=== PATIENT | male | born 1945 | race Caucasian/White ===

== ENCOUNTER 2021-01-27 12:30 | Observation (INO) ==
[2021-01-27] MEDS ORDERED: IOPAMIDOL 100 ML BOTTLE IV ONE (12:31)
[2021-01-27] MEDS ORDERED: ONDANSETRON 4 MG/2 ML VIAL IV ONE (12:41)
[2021-01-27] MEDS ORDERED: 0.9 % SODIUM CHLORIDE 1,000 ML IV SCH ×2 (12:45→13:30)
[2021-01-27 12:53] LABS: POC Creatinine 0.9 mg/dL (0.6-1.2)
--- NOTE | 2021-01-27 12:59 | Cat Scan Report ---
CLINICAL INFORMATION: Code stroke COMPARISON: None. TECHNIQUE: 2.5 mm helical slices were obtained in the skull base to vertex. Following reconstruction, axial reformatted images were reviewed at bone and parenchymal windows. The exam was performed using radiation dose optimization techniques including, but not limited to, automated exposure control, adjustment of the mA and/or kV according to patient size and use of iterative reconstruction technique. FINDINGS: The ventricles, sulci, fissures, and cisterns are symmetrically enlarged compatible with mild age-related atrophy. No extra-axial fluid collections are identified. Mild patchy chronic ischemic changes, in the deep cerebral white matter, are expected for age. There is no hemorrhage, mass effect, or edema. Bone windows show no osseous abnormality. IMPRESSION: Mild atrophy and chronic ischemic changes in the deep cerebral white matter-expected for age. No acute findings Interpreted and Authenticated by: Juanjose Ayala 01/27/21
[2021-01-27 13:15] LABS: POC INR 1.4 (0.8-1.2); POC Pro Time 16.3 sec (11.9-14.5)
[2021-01-27] MEDS ORDERED: 0.9 % SODIUM CHLORIDE 1,000 ML IV ONE (13:19)
--- NOTE | 2021-01-27 13:25 | Cat Scan Report ---
CLINICAL INFORMATION: Stroke COMPARISON: None. TECHNIQUE: 80 cc of Isovue-370 were injected intravenously , and using SmartPrep to maximize cerebral arterial opacification, 0.625 mm helical slices were obtained from the skull base through the cerebral vertex. Following reconstruction , sagittal, coronal and axial reformatted images were processed and reviewed at multiple windows and levels. 3D volume rendered and MIP images were acquired at a independent workstation. The exam was performed using radiation dose optimization techniques including, but not limited to, automated exposure control, adjustment of the mA and/or kV according to patient size and use of iterative reconstruction technique. FINDINGS: The intracranial internal carotid, vertebral, basilar, anterior, middle and posterior cerebral arteries and their branches are well-opacified and normal in contour and caliber without significant stenosis, occlusion or other pathology. Superficial/deep cerebral veins and deep venous sinuses are widely patent IMPRESSION: Normal exam Interpreted and Authenticated by: Juanjose Ayala 01/27/21
--- NOTE | 2021-01-27 13:27 | Emergency Department Note ---
Neuro HPI General Chief Complaint: Stroke Symptoms Stated Complaint: Stroke Sx Time Seen by Provider: 01/27/21 12:41 Source: patient, family (), RN notes reviewed and old records reviewed Mode of arrival: ambulatory Limitations: no limitations History of Present Illness HPI Narrative: Narrative: 75-year-old male with left facial starting the night prior to arrival at 0 730 had a history of German's palsy and they are thinking that was probably the case however he started having headaches vision changes blurred vision and some numbness on his left arm. Came in for evaluation of CVA. Has history of atrial fib and is on. Onset (ago): hour(s) Last Observed Normal: 19:30 Timing confirmed by: spouse Location: left face History of same: Yes Severity: moderate Quality: weak, numb and tingling Improves with: none Worsens with: time Context: gradual onset On Anticoagulants: Yes Associated symptoms: Reports headaches, nausea/vomiting, weakness and other (eye pain and vision changes); Denies confusion, chest pain, cough, diaphoresis, fever/chills, loss of appetite, malaise, vertigo, seizures, shortness of breath and syncope Treatments Prior to Arrival: none Related Data Home Medications Medication Instructions Recorded Confirmed insulin glargine 100 unit/mL (3 18 unit SUB-Q Q12H ml 09/22/20 12/22/20 mL) subcutaneous pen terbinafine HCl 250 mg tablet 250 mg PO QDAY tab 11/06/20 12/22/20 Previous Rx's Medication Instructions Recorded blood-glucose meter #1 each 12/24/16 lancets #100 each 12/24/16 potassium chloride 10 mEq 10 meq PO BID #180 tab 04/20/19 tablet,extended release(part/cryst) ketoconazole 2 % topical cream 1 applic TOPICAL BID #60 g 08/06/19 furosemide 40 mg tablet 40 mg PO QDAY 90 Days #90 tab 08/18/20 blood sugar diagnostic #100 each 10/13/20 sildenafil 50 mg tablet 50 mg PO ONCE #30 tab 10/16/20 diltiazem HCl 240 mg 240 mg PO QDAY 90 Days #90 cap 11/04/20 capsule,extended release 24 hr losartan 50 mg tablet 50 mg PO BID 90 Days #180 tab 11/04/20 metoprolol succinate 50 mg 50 mg PO BID 90 Days #180 tab 11/04/20 tablet,extended release 24 hr warfarin 5 mg tablet See Rx Instructions .ROUTE 11/17/20 .COMPLEX #90 tab insulin aspart 5 unit SUB-Q QDAY #15 ml 11/19/20 (niacinamide)(U-100) 100 unit/mL(3 mL) subcutaneous pen metformin 500 mg tablet 1,000 mg PO BID 90 Days #360 tab 11/26/20 atorvastatin 10 mg tablet 10 mg PO QDAY 90 Days #90 tab 12/18/20 magnesium oxide 400 mg (241.3 mg 400 mg PO BID 90 Days #180 tab 01/05/21 magnesium) tablet glucagon 3 mg/actuation nasal spray 3 mg INTRANASAL ONCE #2 ea 01/07/21 digoxin 125 mcg (0.125 mg) tablet 125 mcg PO QDAY 90 Days #90 tab 01/08/21 Allergies Allergy/AdvReac Type Severity Reaction Status Date / Time tramadol AdvReac Intermediate wound him Verified 01/27/21 12:43 up, insomnia Review of Systems ROS ROS Narrative: Narrative: All systems ED: reviewed and negative except as stated. 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) Chronic neck pain (Chronic) Erectile dysfunction (Chronic) Atrial fibrillation (Chronic 06/14/15) Sleep apnea (Chronic) Obesity (Chronic) Hx of colonoscopy (Chronic 12/07/10) Hx MRSA infection (Chronic) Osteoarthrosis (Chronic) Hypertension, essential (Chronic) Hyperlipidemia (Chronic) Ventral hernia (Chronic) Heartburn (Chronic) Diabetes mellitus, type II (Chronic) Dermatophytosis of groin (Chronic) DDD (degenerative disc disease) (Chronic) Anemia (Chronic) Medical History Acute diastolic (congestive) heart failure (06/14/15) Anemia Asthma Atrial fibrillation (06/14/15) Cardiomyopathy CHF (congestive heart failure) CHF (congestive heart failure) Chronic neck pain DDD (degenerative disc disease) Dermatophytosis of groin Diabetes mellitus, type II Dyspnea on exertion Erectile dysfunction Heartburn Hx MRSA infection Hyperlipidemia Hypertension, essential Medicare annual wellness visit, initial Obesity Osteoarthrosis Uncontrolled diabetes mellitus Ventral hernia Surgical History H/O shoulder surgery LEFT, 01/2020 Hx of cataract surgery 2019 Hx of colonoscopy (12/07/10) 12/17 Family History sister Malignant neoplasm of cervix mother Essential hypertension Disorder of joint Disease of lung father Disease of lung Schizophrenia Social History Smoking Status: Former smoker Alcohol Intake Frequency: holiday/special occasion only Substance Use: does not use Exam Narrative Narrative: Narrative: General Limitations: no limitations General appearance: Present alert and in no apparent distress Head Head: Present atraumatic and normocephalic Eye Eye: Present normal appearance, PERRL and EOMI ENT ENT: Present normal exam and mucous membranes moist Neck Neck: Present normal inspection and full ROM Chest Chest: Present normal inspection; Absent tenderness Respiratory Respiratory: Present normal lung sounds bilaterally; Absent respiratory distress Cardiovascular Cardiovascular: Present regular rate, irregular rhythm and systolic murmur Adbominal Abdominal: Present soft; Absent distention, tenderness, guarding and rebound Extremities Extremities: Present normal inspection, full ROM and normal capillary refill; Absent tenderness, pedal edema and pretibial edema Back Back: Present normal inspection; Absent CVA tenderness (R) and CVA tenderness (L) Neurological Neurological: Present alert and oriented X3 Expanded Neurological Patient oriented to: Present person, place and time Speech: Present fluid speech CRANIAL NERVES: EOM function (II, III, IV, ): Normal, facial sensation (V): Abnormal Left, facial palsy (VII): Abnormal Left and tongue deviation (XII): Normal CEREBELLAR FUNCTION: Romberg normal Motor strength - LUE: 5/5 Motor strength - RUE: 5/5 Motor strength - LLE: 5/5 Motor strength - RLE: 5/5 UPPER MOTOR NEURON EXAM: evan neglect: Normal, pronator drift: Normal and Babinski sign: Normal SENSORY EXAM UPPER EXTREMITY: Abnormal Left: light touch SENSORY EXAM LOWER EXTREMITY: Normal: light touch DTR: 2+: biceps (L), biceps (R), patellar (L) and patellar (R) Coma Scale Eye Opening: Spontaneous Coma Scale Motor Response: Obeys Commands Coma Scale Verbal Response: Oriented Coma Scale Total: 15 Psychiatric Psychiatric: Present normal affect and normal mood Skin Skin: Present warm (WNL); Absent rash Course Vital Signs Vital signs: Vital Signs Temperature 97.0 F 01/27/21 12:33 Pulse Rate 85 01/27/21 12:33 Respiratory Rate 16 01/27/21 12:33 Blood Pressure 162/100 01/27/21 12:33 Pulse Oximetry (%) 97 01/27/21 12:33 Temperature 97.0 F 01/27/21 12:50 Pulse Rate 50 L 01/27/21 16:02 Respiratory Rate 17 01/27/21 16:02 Blood Pressure 158/82 01/27/21 16:02 Pulse Oximetry (%) 97 01/27/21 16:02 MDM MDM Narrative Medical decision making narrative: Narrative: 75-year-old male with acute left facial droop and additional symptoms including eye pain blurred vision and numbness to the arm. Came in after 12 hours so TPA will was not considered he is also on Coumadin with an INR 1.4. CTA of the head and neck did not reveal a large vessel occlusion. Teleneurology was used in the recommendations for a hemoglobin A1c and lipid panel and MRIs to be done the patient to be observed he is already anticoagulated for his A. fib there is no low-dose lovastatin discussed patient with hospitalist who graciously agreed to admission further care instruction per hospitalist Differential Diagnosis Differential Diagnosis: CVA TIA German's palsy hypoglycemia Medical Records Medical records reviewed: Yes I reviewed the patient's medical records. Medical records narrative: History of A. fib and is on Coumadin Lab Data Lab results reviewed: Yes I reviewed the patient's lab results. Result diagrams: 01/27/21 12:48 01/27/21 12:47 Labs: Lab Results 01/27/21 01/27/21 01/27/21 Range/Units 12:41 12:47 12:47 WBC (4.5-11.0) K/mcL RBC (4.63-6.08) M/mcL Hgb (13.7-17.5) g/dL Hct (40.1-51.0) % MCV (80.0-100.0) fL MCH (26.0-34.0) pg MCHC (31.0-36.0) g/dL RDW (11.5-14.5) % Plt Count (140-440) K/mcL MPV (7.4-10.4) fL Neut % (Auto) (38.0-78.0) % Lymph % (Auto) (15.5-49.0) % [place] % (Auto) (1.0-12.0) % Eos % (Auto) (0.0-7.0) % Baso % (Auto) (0.0-2.0) % Lymph # (Auto) (1.50-4.80) K/mcL [place] # (Auto) (0.10-0.90) K/mcL Eos # (Auto) (0.00-0.70) K/mcL Baso # (Auto) (0.00-0.30) K/mcL Absolute Neutrophils (1.80-8.00) K/mcL POC PT 16.3 H (11.9-14.5) sec PT 17.8 H (11.9-14.5) sec POC INR 1.4 H (0.8-1.2) INR 1.4 H (0.9-1.1) APTT 37.3 H (20.0-37.0) sec Sodium 136 (133-145) mmol/L Potassium 4.0 (3.3-5.1) mmol/L Chloride 101 (96-108) mmol/L Carbon Dioxide 21 L (22-30) mmol/L Anion Gap 14.0 (8.0-16.0) BUN 14 (8-23) mg/dL Creatinine 0.9 (0.7-1.2) mg/dL POC Creatinine 0.9 (0.6-1.2) mg/dL GFR Calculation 82 Glucose 314 H (70-105) mg/dL Calcium 9.1 (8.6-10.4) mg/dL Total Bilirubin 0.9 (0.1-1.0) mg/dL AST 17 (<40) U/L ALT 15 (<40) U/L Alkaline Phosphatase 87 (39-117) U/L Troponin T < 0.01 (<0.03) ng/mL Total Protein 7.1 (5.9-8.4) gm/dL Albumin 4.0 (3.2-5.2) gm/dL Globulin 3.1 (2.2-3.7) gm/dL Albumin/Globulin Ratio 1.3 (1.0-2.3) Urine Color Urine Appearance (Clear) Urine pH (5.0-9.0) Ur Specific [place] (1.000-1.035) Urine Protein (Negative) mg/dL Urine Glucose (UA) (Negative) mg/dL Urine Ketones (Negative) mg/dL Urine Occult Blood (Negative) mg/dL Urine Nitrate (Negative) Urine Bilirubin (Negative) mg/dL Urine Urobilinogen mg/dL Ur Leukocyte Esterase (Negative) /ug Urine RBC (0-3) /hpf Urine WBC (0-4) /hpf Ur Squamous Epith Cells (0-4) /hpf Urine Bacteria (0) /hpf Ur Culture Indicated? Digoxin ng/mL 01/27/21 01/27/21 01/27/21 Range/Units 12:47 12:48 15:20 WBC 9.8 (4.5-11.0) K/mcL RBC 4.61 L (4.63-6.08) M/mcL Hgb 14.9 (13.7-17.5) g/dL Hct 43.2 (40.1-51.0) % MCV 93.7 (80.0-100.0) fL MCH 32.3 (26.0-34.0) pg MCHC 34.5 (31.0-36.0) g/dL RDW 13.5 (11.5-14.5) % Plt Count 241 (140-440) K/mcL MPV 10.6 H (7.4-10.4) fL Neut % (Auto) 63.9 (38.0-78.0) % Lymph % (Auto) 27.1 (15.5-49.0) % [place] % (Auto) 8.0 (1.0-12.0) % Eos % (Auto) 0.6 (0.0-7.0) % Baso % (Auto) 0.4 (0.0-2.0) % Lymph # (Auto) 2.66 (1.50-4.80) K/mcL [place] # (Auto) 0.78 (0.10-0.90) K/mcL Eos # (Auto) 0.06 (0.00-0.70) K/mcL Baso # (Auto) 0.04 (0.00-0.30) K/mcL Absolute Neutrophils 6.27 (1.80-8.00) K/mcL POC PT (11.9-14.5) sec PT (11.9-14.5) sec POC INR (0.8-1.2) INR (0.9-1.1) APTT (20.0-37.0) sec Sodium (133-145) mmol/L Potassium (3.3-5.1) mmol/L Chloride (96-108) mmol/L Carbon Dioxide (22-30) mmol/L Anion Gap (8.0-16.0) BUN (8-23) mg/dL Creatinine (0.7-1.2) mg/dL POC Creatinine (0.6-1.2) mg/dL GFR Calculation Glucose (70-105) mg/dL Calcium (8.6-10.4) mg/dL Total Bilirubin (0.1-1.0) mg/dL AST (<40) U/L ALT (<40) U/L Alkaline Phosphatase (39-117) U/L Troponin T (<0.03) ng/mL Total Protein (5.9-8.4) gm/dL Albumin (3.2-5.2) gm/dL Globulin (2.2-3.7) gm/dL Albumin/Globulin Ratio (1.0-2.3) Urine Color Yellow Urine Appearance Clear (Clear) Urine pH 6.0 (5.0-9.0) Ur Specific [place] 1.047 (1.000-1.035) Urine Protein Negative (Negative) mg/dL Urine Glucose (UA) >=500 A (Negative) mg/dL Urine Ketones Negative (Negative) mg/dL Urine Occult Blood Negative (Negative) mg/dL Urine Nitrate Negative (Negative) Urine Bilirubin Negative (Negative) mg/dL Urine Urobilinogen Negative mg/dL Ur Leukocyte Esterase Negative (Negative) /ug Urine RBC 0 (0-3) /hpf Urine WBC 0 (0-4) /hpf Ur Squamous Epith Cells 0 (0-4) /hpf Urine Bacteria None (0) /hpf Ur Culture Indicated? No Digoxin 0.4 ng/mL ED POC Tests ED POC Tests: JACQUELINE - SARS Antigen Negative Radiology Data Radiology results reviewed: Yes I reviewed the patient's radiology results. Radiology results narrative: Head CT IMPRESSION: Mild atrophy and chronic ischemic changes in the deep cerebral white matter-expected for age. No acute findings Head CTA IMPRESSION: Normal exam Neck CTA IMPRESSION: Moderate right and mild left fibrofatty calcific plaque in the carotid bifurcations, but no evidence of stenosis or occlusion. EKG Data EKG #1: EKG attestation: Yes I reviewed and interpreted this EKG. and Yes There are no EKG findings of acute coronary syndrome Rate: normal (66) Rhythm: A.Fib Q waves: III Interpretation: nonspecific ST-T wave changes Pulse Oximetry Data Pulse Ox %: 95 Interpretation: 95% on room air is within normal limits for this patient. Discharge Plan Patient/Caregiver Discharge Instructions Pt seen by MAGICIAN HELPER/PA only: No Clinical Impression: Acute CVA (cerebrovascular accident) A-fib Qualifiers: Atrial fibrillation type: longstanding persistent Qualified Code(s): I48.11 - Longstanding persistent atrial fibrillation Diabetes Qualifiers: Diabetes mellitus type: type 2 Diabetes mellitus ferry terminal agent insulin use: with custodial use Patient Disposition: Xfer As Inpt ([facility]) Follow up with: Uriah Pedraza PA-C [Primary Care Provider] - Prescriptions: No Action (DME) lancets [Comfort Lancets] misc See Dose Instructions .ROUTE .MEDSUPPLY Qty: 100 RF: 0 (DME) blood-glucose meter kit See Dose Instructions .ROUTE .MEDSUPPLY Qty: 1 RF: 0 ketoconazole 2 % cream 1 applic TOPICAL BID Qty: 60 RF: 0 furosemide 40 mg tablet 40 mg PO QDAY 90 Days Qty: 90 RF: 1 (DME) True Metrix Glucose Test Strip Strip See Dose Instructions .ROUTE .MEDSUPPLY Qty: 100 RF: 2 sildenafil [Viagra] 50 mg tablet 50 mg PO ONCE Qty: 30 RF: 0 losartan 50 mg tablet 50 mg PO BID 90 Days Qty: 180 RF: 1 metoprolol succinate 50 mg tablet extended release 24 hr 50 mg PO BID 90 Days Qty: 180 RF: 1 diltiazem HCl 240 mg capsule,extended release 24hr 240 mg PO QDAY 90 Days Qty: 90 RF: 1 warfarin 5 mg tablet See Rx Instructions mg .ROUTE .COMPLEX Qty: 90 RF: 0 insulin aspart (niacinamide) 100 unit/mL (3 mL) insulin pen 5 unit SUB-Q QDAY Qty: 15 RF: 0 metformin 500 mg tablet 1,000 mg PO BID 90 Days Qty: 360 RF: 1 atorvastatin 10 mg tablet 10 mg tablet 10 mg PO QDAY 90 Days Qty: 90 RF: 1 magnesium oxide 400 mg (241.3 mg magnesium) tablet 400 mg PO BID 90 Days Qty: 180 RF: 1 digoxin 125 mcg (0.125 mg) tablet 125 mcg PO QDAY 90 Days Qty: 90 RF: 1 potassium chloride [Klor-Con M10] 10 mEq tablet,ER particles/crystals 10 meq PO BID Qty: 180 RF: 1 terbinafine HCl 250 mg tablet 250 mg PO QDAY RF: 0 Basaglar KwikPen U-100 Insulin 100 unit/mL (3 mL) insulin pen 18 unit SUB-Q Q12H RF: 0 Baqsimi 3 mg/actuation spray,non-aerosol 3 mg intranasal ONCE Qty: 2 RF: 0
--- NOTE | 2021-01-27 13:30 | Cat Scan Report ---
CLINICAL INFORMATION: Code stroke COMPARISON: None. TECHNIQUE: 80 cc of Isovue-300 were injected intravenously followed by 40 cc of normal saline flush. Using SmartPrep, 0.625 helical slices were obtained from the thoracic aortic arch through the nikolski of [place]. Following reconstruction, 2.5 mm sagittal, coronal and axial reformatted images were processed. MIPS , 3-D volume rendering and CPR images were also constructed. The exam was performed using radiation dose optimization techniques including, but not limited to, automated exposure control, adjustment of the mA and/or kV according to patient size and use of iterative reconstruction technique. FINDINGS: The thoracic aortic arch is normal diameter with minimal intimal thickening and conventional aortic branching. Fibrofatty and calcific plaque atherosclerotic is seen in both carotid bifurcations and internal carotid artery origins-more significant on the right. There is however no evidence of stenoses. The brachiocephalic, both subclavian, both common and external carotid and both vertebral arteries are widely patent without significant abnormality. No soft tissue abnormality. IMPRESSION: Moderate right and mild left fibrofatty calcific plaque in the carotid bifurcations, but no evidence of stenosis or occlusion. Interpreted and Authenticated by: Juanjose Ayala 01/27/21
[2021-01-27 13:34] LABS: Basophils # (Auto) 0.04 K/mcL (0.00-0.30); Basophils % (Auto) 0.4 % (0.0-2.0); Eosinophils # (Auto) 0.06 K/mcL (0.00-0.70); Eosinophils % (Auto) 0.6 % (0.0-7.0); Hematocrit 43.2 % (40.1-51.0); Hemoglobin 14.9 g/dL (13.7-17.5); Lymphocytes # (Auto) 2.66 K/mcL (1.50-4.80); Lymphocytes % (Auto) 27.1 % (15.5-49.0); Mean Cell Volume 93.7 fL (80.0-100.0); Mean Corpuscular HGB Conc 34.5 g/dL (31.0-36.0); Mean Platelet Volume 10.6 fL (7.4-10.4); Monocytes # (Auto) 0.78 K/mcL (0.10-0.90); Neutrophils % (Auto) 63.9 % (38.0-78.0); Platelet Count 241 K/mcL (140-440); RBC 4.61 M/mcL (4.63-6.08); Red Cell Distribution Width 13.5 % (11.5-14.5); WBC 9.8 K/mcL (4.5-11.0)
[2021-01-27 14:06] LABS: Partial Thromboplastin Time 37.3 sec (20.0-37.0)
[2021-01-27 14:09] LABS: Digoxin 0.4 ng/mL
[2021-01-27 14:16] LABS: INR 1.4 (0.9-1.1); Prothrombin Time 17.8 sec (11.9-14.5)
[2021-01-27 15:01] LABS: ALT/SGPT 15 U/L (<40); AST/SGOT 17 U/L (<40); Albumin/Globulin Ratio 1.3 (1.0-2.3); Alkaline Phosphatase 87 U/L (39-117); Bilirubin,Total 0.9 mg/dL (0.1-1.0); Blood Urea Nitrogen 14 mg/dL (8-23); Calcium 9.1 mg/dL (8.6-10.4); Carbon Dioxide 21 mmol/L (22-30); Chloride 101 mmol/L (96-108); Globulin 3.1 gm/dL (2.2-3.7); Glomerular Filtration Rate 82; Glucose 314 mg/dL (70-105)
--- NOTE | 2021-01-27 16:03 | Internal Med History&Physical ---
HPI History of Present Illness Patient information: Note initiated : 01/27/21 at 3:57 pm Service Date, if different from initiated Date: [] Patient: Marbin Cummings a 75 y/o M admitted on for Stroke Sx. Chief Complaint: [] History of present illness: Mr. Cummings is a 75 year old M Patient presented to the ED with left facial numbness and weakness. Symptoms started yesterday at 1930 and prior to that he was in his normal state of health. 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 Symptoms have continued through the night. States he developed left facial numbness when he was in the living room with his last night and then shortly thereafter started having droopiness. Had some blurry vision as well. Denies any swallowing difficulty. Denies any numbness tingling or weakness in his arms or legs. Patient states that he feels his symptoms have improved overall but still has noticeable left facial droop. Patient says last night he was not able to raise his eyebrow or close his eye but is able to do both of those today. CTA head neck was unremarkable for acute pathology or severe stenosis. Case discussed with stroke neurologist. Patient does have a history of A. fib and was subtherapeutic on INR. Review of Systems: Pertinent positives as above/headache. Denies fever/chills/nausea/vomiting/chest or abdominal pain/cough/dyspnea/diarrhea. Otherwise see above. 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) Chronic neck pain (Chronic) Erectile dysfunction (Chronic) Atrial fibrillation (Chronic 06/14/15) Sleep apnea (Chronic) Obesity (Chronic) Hx of colonoscopy (Chronic 12/07/10) Hx MRSA infection (Chronic) Osteoarthrosis (Chronic) Hypertension, essential (Chronic) Hyperlipidemia (Chronic) Ventral hernia (Chronic) Heartburn (Chronic) Diabetes mellitus, type II (Chronic) Dermatophytosis of groin (Chronic) DDD (degenerative disc disease) (Chronic) Anemia (Chronic) Medical History Acute diastolic (congestive) heart failure (06/14/15) Anemia Asthma Atrial fibrillation (06/14/15) Cardiomyopathy CHF (congestive heart failure) CHF (congestive heart failure) Chronic neck pain DDD (degenerative disc disease) Dermatophytosis of groin Diabetes mellitus, type II Dyspnea on exertion Erectile dysfunction Heartburn Hx MRSA infection Hyperlipidemia Hypertension, essential Medicare annual wellness visit, initial Obesity Osteoarthrosis Uncontrolled diabetes mellitus Ventral hernia Surgical History H/O shoulder surgery LEFT, 01/2020 Hx of cataract surgery 2019 Hx of colonoscopy (12/07/10) 12/17 Family History sister Malignant neoplasm of cervix mother Essential hypertension Disorder of joint Disease of lung father Disease of lung Schizophrenia Social History household members: spouse housing: house lives independently: Yes marital status: education level: college service: Yes ([id number]) branch: [employer] occupational status: 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, 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 leisure activities: music and other other: 3 children; 16 grandchildren eating out: rarely or never physical activity: none smoking status: Never smoker alcohol intake frequency: holiday/special occasion only substance use type: does not use evert/anabaptist: Quaker seatbelt use: always MEDS/ALLERGIES Home Medications and Allergies Home Medications Medication Instructions Recorded Confirmed Type blood-glucose meter #1 each 12/24/16 01/27/21 Rx lancets #100 each 12/24/16 01/27/21 Rx potassium chloride 10 mEq 10 meq PO BID #180 tab 04/20/19 01/27/21 Rx tablet,extended release(part/cryst) ketoconazole 2 % topical cream 1 applic TOPICAL BID #60 g 08/06/19 01/27/21 Rx furosemide 40 mg tablet 40 mg PO QDAY 90 Days #90 tab 08/18/20 01/27/21 Rx insulin glargine 100 unit/mL (3 18 unit SUB-Q Q12H ml 09/22/20 01/27/21 History mL) subcutaneous pen blood sugar diagnostic #100 each 10/13/20 01/27/21 Rx sildenafil 50 mg tablet 50 mg PO ONCE #30 tab 10/16/20 01/27/21 Rx diltiazem HCl 240 mg 240 mg PO QDAY 90 Days #90 cap 11/04/20 01/27/21 Rx capsule,extended release 24 hr losartan 50 mg tablet 50 mg PO BID 90 Days #180 tab 11/04/20 01/27/21 Rx metoprolol succinate 50 mg 50 mg PO BID 90 Days #180 tab 11/04/20 01/27/21 Rx tablet,extended release 24 hr terbinafine HCl 250 mg tablet 250 mg PO QDAY tab 11/06/20 01/27/21 History warfarin 5 mg tablet See Rx Instructions .ROUTE 11/17/20 01/27/21 Rx .COMPLEX #90 tab insulin aspart 5 unit SUB-Q QDAY #15 ml 11/19/20 01/27/21 Rx (niacinamide)(U-100) 100 unit/mL(3 mL) subcutaneous pen metformin 500 mg tablet 1,000 mg PO BID 90 Days #360 tab 11/26/20 01/27/21 Rx atorvastatin 10 mg tablet 10 mg PO QDAY 90 Days #90 tab 12/18/20 01/27/21 Rx magnesium oxide 400 mg (241.3 mg 400 mg PO BID 90 Days #180 tab 01/05/21 01/27/21 Rx magnesium) tablet glucagon 3 mg/actuation nasal spray 3 mg INTRANASAL ONCE #2 ea 01/07/21 01/27/21 Rx digoxin 125 mcg (0.125 mg) tablet 125 mcg PO QDAY 90 Days #90 tab 01/08/21 01/27/21 Rx Allergies Allergy/AdvReac Type Severity Reaction Status Date / Time tramadol AdvReac Intermediate wound him Verified 01/27/21 12:43 up, insomnia EXAM Constitutional Vitals: Temp Pulse Resp BP Pulse Ox 97.0 F 69 17 128/65 97 01/27/21 12:50 01/27/21 15:32 01/27/21 15:32 01/27/21 15:32 01/27/21 15:32 Exam: General: Alert, Awake, No acute Distress Eyes/N/T: EOMI, Head/Neck: neck supple, normocephalic atraumatic CV: irreg irreg, No murmurs, normal s1/s2 Pulm: Clear b/l, no wheezing/rhonchi/rales Abd: soft, nontender, +BS x4 Ext: no clubbing/cyanosis/edema Neuro: Alert, moves all extremities, symmetrical strength b/l upper/lower, sensations intact b/l upper/lower. Left facial droop, left facial numbness seems to be improving. Patient is able to raise his eyebrow and wrinkle his forehead, although he said he was not able to raise eyebrow last night or close his eye but can now. Skin: warm/dry DATA Data Completed and Pending Labs: Labs from last 24 hours 01/27/21 01/27/21 01/27/21 15:20 12:48 12:47 WBC 9.8 RBC 4.61 L Hgb 14.9 Hct 43.2 MCV 93.7 MCH 32.3 MCHC 34.5 RDW 13.5 Plt Count 241 MPV 10.6 H Neut % (Auto) 63.9 Lymph % (Auto) 27.1 [place] % (Auto) 8.0 Eos % (Auto) 0.6 Baso % (Auto) 0.4 Lymph # (Auto) 2.66 [place] # (Auto) 0.78 Eos # (Auto) 0.06 Baso # (Auto) 0.04 Absolute Neutrophils 6.27 POC PT PT POC INR INR APTT Sodium Potassium Chloride Carbon Dioxide Anion Gap BUN Creatinine POC Creatinine GFR Calculation Glucose Calcium Total Bilirubin AST ALT Alkaline Phosphatase Troponin T Total Protein Albumin Globulin Albumin/Globulin Ratio Urine Color Pending Urine Appearance Pending Urine pH Pending Ur Specific [place] Pending Urine Protein Pending Urine Glucose (UA) Pending Urine Ketones Pending Urine Occult Blood Pending Urine Nitrate Pending Urine Bilirubin Pending Urine Urobilinogen Pending Ur Leukocyte Esterase Pending Digoxin 0.4 01/27/21 01/27/21 01/27/21 12:47 12:47 12:41 WBC RBC Hgb Hct MCV MCH MCHC RDW Plt Count MPV Neut % (Auto) Lymph % (Auto) [place] % (Auto) Eos % (Auto) Baso % (Auto) Lymph # (Auto) [place] # (Auto) Eos # (Auto) Baso # (Auto) Absolute Neutrophils POC PT 16.3 H PT 17.8 H POC INR 1.4 H INR 1.4 H APTT 37.3 H Sodium 136 Potassium 4.0 Chloride 101 Carbon Dioxide 21 L Anion Gap 14.0 BUN 14 Creatinine 0.9 POC Creatinine 0.9 GFR Calculation 82 Glucose 314 H Calcium 9.1 Total Bilirubin 0.9 AST 17 ALT 15 Alkaline Phosphatase 87 Troponin T < 0.01 Total Protein 7.1 Albumin 4.0 Globulin 3.1 Albumin/Globulin Ratio 1.3 Urine Color Urine Appearance Urine pH Ur Specific [place] Urine Protein Urine Glucose (UA) Urine Ketones Urine Occult Blood Urine Nitrate Urine Bilirubin Urine Urobilinogen Ur Leukocyte Esterase Digoxin A/P Narrative A/P Narrative: A: *Stroke-like symptoms (left facial numbness/drooping): -ABCD=5 -h/o Left [place] Palsy but pt able to raise eyebrow/wrinkle forehead/close eye, although states was unable to perform those tasks lastnight. -CTA head/neck no remarkable stenosis *Afib: On warfarin/Dig/Dilt -INR subtherapeutic *DM: A1c 8.7 *Obese: *HTN/HLD: on statin, ARB/BB -was hypertensive on admit P: -MRI/echo pending -Permissive hypertension first 24 to 40 hours -lipid panel and increase home lipitor for now -SSI -cont Dig/Dilt -hold ARB/BB and likely start tomorrow/staggered -hold lasix for now -pt/ot -ppx: warfarin per pharm DNR Time Spent With Patient Time: Total time spent is greater than 50% in coordination of care (as documented) at patient's floor/unit and/or counseling patient: QUALITY Stroke Symptom Onset Unknown: No
[2021-01-27 16:15] LABS: Appearance,Urine CLEAR (Clear); Bilirubin,Urine Negative (Negative); Color,Urine YELLOW; Culture Indicated,Urine No; Glucose,Urine (UA) >=500 mg/dL (Negative); Ketones,Urine Negative (Negative); Leukocyte Esterase,Urine Negative /ug (Negative); Nitrate,Urine Negative (Negative); Protein,Urine Negative (Negative); Specific Gravity,Urine 1.047 (1.000-1.035); Urine Blood Negative (Negative); Urine RBC 0 /hpf (0-3); Urine Squamous Epithelial Cell 0 /hpf (0-4); Urine WBC 0 /hpf (0-4); Urobilinogen,Urine Negative
[2021-01-27] MEDS ORDERED: ASPIRIN 81 MG TAB.CHEW PO ONE (16:15)
[2021-01-27] MEDS ORDERED: MAGNESIUM SULFATE 2 GM/50 ML BAG IV PRN (16:31)
[2021-01-27] MEDS ORDERED: METOPROLOL TARTRATE 5 MG/5 ML VIAL IV PRN (16:31)
[2021-01-27] MEDS ORDERED: [UNRECOGNIZED DRUG - REMARK] INTRANASAL SCH (16:31)
[2021-01-27] MEDS ORDERED: LACTULOSE 20 GM/30 ML ORAL.SOL PO PRN (16:31)
[2021-01-27] MEDS ORDERED: DEXTROSE 50% 50 ML VIAL IV PRN (16:31)
[2021-01-27] MEDS ORDERED: DEXTROSE 31 GM ORAL.SUSP PO PRN (16:31)
[2021-01-27] MEDS ORDERED: ONDANSETRON 4 MG/2 ML VIAL IV PRN (16:31)
[2021-01-27] MEDS ORDERED: ACETAMINOPHEN 325 MG TABLET PO PRN (16:31)
[2021-01-27] MEDS ORDERED: POTASSIUM CHLORIDE 40 MEQ in DEXTROSE 5% IN WATER 500 ML IV PRN (16:31)
[2021-01-27] MEDS ORDERED: SENNOSIDES 1 TABLET PO PRN (16:31)
[2021-01-27] MEDS ORDERED: PROCHLORPERAZINE 10 MG/2 ML VIAL IV PRN (16:31)
[2021-01-27] MEDS ORDERED: IPRATROPIUM/ALBUTEROL 3 ML AMPUL.NEB NEB PRN (16:31)
[2021-01-27] MEDS ORDERED: POTASSIUM CHLORIDE 20 MEQ TABLET PO PRN ×2 (16:31)
[2021-01-27 17:23] LABS: HDL Cholesterol 34 mg/dL (>40); LDL Cholesterol,Calculated 80 mg/dL (<100); Non-HDL Cholesterol 117 mg/dL (<130); Triglycerides 187 mg/dL (<150)
[2021-01-27] MEDS: INSULIN LISPRO 1 UNIT/0.01 ML UNIT SQ SCH ×2 (17:33→20:46)
[2021-01-27] MEDS: INSULIN GLARGINE, HUMAN 1 UNIT/0.01 ML SQ SCH (20:46)
[2021-01-27] MEDS: 0.9 % SODIUM CHLORIDE 10 ML SYRINGE IV SCH (20:47)
[2021-01-27] MEDS: DOCUSATE SODIUM 100 MG CAPSULE PO SCH (20:47)
[2021-01-27] MEDS ORDERED: ATORVASTATIN 40 MG TABLET PO SCH (21:00)
--- NOTE | 2021-01-28 03:41 | Magnetic Resonance Report ---
CLINICAL INFORMATION: left facial droop/numbness COMPARISON: Head CT 01/27/2021 TECHNIQUE: Sagittal T1 FLAIR, axial T2 FLAIR, diffusion and ADC images were acquired FINDINGS: The ventricles, sulci, fissures and cisterns are symmetrically enlarged compatible with mild age-related atrophy-no extra-axial fluid collection or mass appreciated. Scattered chronic ischemic changes with confluence in the deep periventricular white matter are typical for age. A 5 mm focus of chronic ischemia in the left estefani also noted. There is no region of restricted diffusion to suggest acute infarct. No hemorrhage, mass effect or edema. Signal void in intracerebral arteries, extra-axial cranial nerves, pituitary orbits are all normal. Paranasal sinuses are clear. IMPRESSION: Mild atrophy and scattered chronic ischemic foci in the deep cerebral white matter typical for age. No evidence of acute infarct or other acute intracerebral abnormality Interpreted and Authenticated by: Juanjose Ayala 01/28/21
[2021-01-28] MEDS: 0.9 % SODIUM CHLORIDE 10 ML SYRINGE IV SCH (05:44)
[2021-01-28 06:58] LABS: INR 1.4 (0.9-1.1); Prothrombin Time 18.3 sec (11.9-14.5)
[2021-01-28 07:25] LABS: Digoxin 0.5 ng/mL
[2021-01-28] MEDS ORDERED: methylPREDNISolone SOD SUCC 125 MG/2 ML VIAL IV ONE (07:29)
--- NOTE | 2021-01-28 07:29 | Internal Med Progress Note ---
SUBJECTIVE Subjective Patient information: Note initiated : 01/28/21 at 7:25 am Service Date, if different from initiated Date: [] Patient: Marbin Cummings 75 y/o M admitted on 01/27/21 for Stroke Sx. Chief Complaint: [] Interval history: History of present illness: Mr. Cummings is a 75 year old M Patient presented to the ED with left facial numbness and weakness. Symptoms started yesterday at 1930 and prior to that he was in his normal state of h ealth. 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 Symptoms have continued through the night. States he developed left facial numbness when he was in the living room with his last night and then shortly thereafter started having droopiness. Had some blurry vision as well. Denies any swallowing difficulty. Denies any numbness tingling or weakness in his arms or legs. Patient states that he feels his symptoms have improved overall but still has noticeable left facial droop. Patient says last night he was not able to raise his eyebrow or close his eye but is able to do both of those today. CTA head neck was unremarkable for acute pathology or severe stenosis. Case discussed with stroke neurologist. Patient does have a history of A. fib and was subtherapeutic on INR. 01/28 Constitutional Vitals: Vital Signs Temp Pulse Resp BP Pulse Ox 97.0 F 71 32 H 118/106 100 01/28/21 07:22 01/28/21 00:39 01/28/21 07:22 01/28/21 07:22 01/28/21 07:22 Period Temp Pulse Resp BP Sys/Patterson Pulse Ox Last 24 Hr 97.0 F-98.3 F 33-105 10-32 118-176/63-112 84-100 Intake and Output 01/27/21 01/28/21 01/28/21 21:59 05:59 13:59 Intake Total 1665 100 Output Total 675 1025 Balance 990 -925 Weight 90.038 kg Intake & Output: Intake & Output 01/27/21 01/28/21 01/28/21 21:59 05:59 13:59 Intake Total 1665 100 Output Total 675 1025 Balance 990 -925 Weight 90.038 kg Intake: IV 1000 Sodium Chloride 0.9% 1,000 ml @ 1000 Wide Open IV BOLUS ONE Rx#: [id number] Oral 665 100 Output: Void Amount 675 1025 Other: Meal Dinner Percent of Meal Consumed 100% Urine Appearance Clear Cloudy Urine Color Straw Straw Exam: General: Alert, Awake, No acute Distress Eyes/N/T: EOMI, Head/Neck: neck supple, CV: irreg irreg, No murmurs, Pulm: Clear b/l, no wheezing/rhonchi/rales Abd: soft, nontender, +BS x4 Ext: no clubbing/cyanosis/edema Neuro: Alert, moves all extremities, symmetrical strength b/l upper/lower, sensations intact b/l upper/lower. Left facial droop, left facial numbness seems to be improving. Patient is able to raise his eyebrow and wrinkle his forehead, although he said he was not able to raise eyebrow last night or close his eye but can now. Skin: warm/dry OBJ DATA Labs CBC & Chem 7: 01/27/21 12:48 01/27/21 12:47 Labs: Abnormal Lab Results 01/28/21 01/27/21 01/27/21 05:43 15:20 12:48 RBC 4.61 L MPV 10.6 H POC PT PT 18.3 H POC INR INR 1.4 H APTT Carbon Dioxide Glucose Triglycerides HDL Cholesterol Urine Glucose (UA) >=500 A 01/27/21 01/27/21 01/27/21 12:47 12:47 12:41 RBC MPV POC PT 16.3 H PT 17.8 H POC INR 1.4 H INR 1.4 H APTT 37.3 H Carbon Dioxide 21 L Glucose 314 H Triglycerides 187 H HDL Cholesterol 34 L Urine Glucose (UA) Meds: Medications Acetaminophen (Acetaminophen 325 Mg Tablet) 650 mg PO Q6HP PRN PRN Reason: PAIN/FEVER > 101 Albuterol/Ipratropium (Ipratropium/Albuterol 3 Ml Ampul.Neb) 3 ml NEB Q4HP PRN PRN Reason: Shortness Of Breath Atorvastatin Calcium (Atorvastatin 40 Mg Tablet) 80 mg PO HS MARKO Last Admin: 01/27/21 20:47 Dose: 80 mg Documented by: Dextrose (Dextrose 50% 50 Ml Vial) 0 ml IV UD PRN PRN Reason: Hypoglycemia Diagnostic Test (Pha) (Accu-Chek 1 Each Strip) 1 each FS [facility] Last Admin: 01/27/21 20:46 Dose: 1 each Documented by: Digoxin (Digoxin 125 Mcg Tablet) 125 mcg PO QDAY [facility] Diltiazem HCl (Diltiazem 240 Mg Cap.Xl.24h) 240 mg PO QDAY [facility] Docusate Sodium (Docusate Sodium 100 Mg Capsule) 100 mg PO BID [facility] Last Admin: 01/27/21 20:47 Dose: Not Given Documented by: Furosemide (Furosemide 40 Mg Tablet) 40 mg PO QDAY [facility] Glucose (Dextrose 31 Gm Oral.Susp) 15 gm PO PRN PRN PRN Reason: Hypoglycemia Potassium Chloride 40 meq/ (Dextrose) 520 mls @ 130 mls/hr IV UD PRN PRN Reason: Potassium < 3 Magnesium Sulfate (Magnesium Sulfate) 2 gm in 50 mls @ 50 mls/hr IV UD PRN PRN Reason: Magnesium </= 1.6 Insulin Glargine (Insulin Glargine, Human 1 Unit/0.01 Ml) 18 unit SQ BID [facility] Last Admin: 01/27/21 20:46 Dose: 18 units Documented by: Insulin Human Lispro (Insulin Lispro 1 Unit/0.01 Ml Unit) 0 unit SQ [facility]; Protocol Last Admin: 01/27/21 20:46 Dose: 2 units Documented by: Lactulose (Lactulose 20 Gm/30 Ml Oral.Alysha) 20 gm PO DAILYP PRN PRN Reason: Constipation Metoprolol Tartrate (Metoprolol Tartrate 5 Mg/5 Ml Vial) 5 mg IV Q2HP PRN PRN Reason: Tachyarrhythmias HR>110 Ondansetron HCl (Ondansetron 4 Mg/2 Ml Vial) 4 mg IV Q4HP PRN PRN Reason: Nausea And Vomiting Terbinafine Hcl 250 (Mg Tablet) 1 dose PO QDAY [facility] Potassium Chloride (Potassium Chloride 20 Meq Tablet) 40 meq PO UD PRN PRN Reason: Potssium is 3-3.5 Potassium Chloride (Potassium Chloride 20 Meq Tablet) 40 meq PO UD PRN PRN Reason: Potassium < 3 Prochlorperazine (Prochlorperazine 10 Mg/2 Ml Vial) 10 mg IV Q6HP PRN PRN Reason: Nausea And Vomiting Senna (Sennosides 1 Tablet) 2 tab PO DAILYP PRN PRN Reason: Constipation Sodium Chloride (0.9 % Sodium Chloride 10 Ml Syringe) 10 ml IV Q8 [facility] Last Admin: 01/28/21 05:44 Dose: 10 ml Documented by: Warfarin Sodium (Warfarin Per Pharmacy) 1 order PO UD MARKO A/P Narrative A/P Narrative: A: *Stroke-like symptoms (left facial numbness/drooping) 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 -CTA head/neck no remarkable stenosis *Afib: On warfarin/Dig/Dilt -INR subtherapeutic *DM: A1c 8.7 *Obese: *HTN/HLD: on statin, ARB/BB -was hypertensive on admit P: -steroid trial -cont statin -SSI -cont Dig/Dilt -hold ARB/BB and likely start tomorrow/staggered -hold lasix for now -pt/ot -ppx: warfarin per pharm (likely needs dose adjustment outpt) DNR Time Spent With Patient Time: Total time spent is greater than 50% in coordination of care (as documented) at patient's floor/unit and/or counseling patient: QUALITY Stroke Onset of Symptoms Date: 01/26/21 Onset of Symptoms Time: 19:30 Symptom Onset Unknown: No VTE Deep Vein Thrombosis/Pulmonary Embolism Present on Admission: No
[2021-01-28] MEDS: INSULIN LISPRO 1 UNIT/0.01 ML UNIT SQ SCH (08:12)
--- NOTE | 2021-01-28 08:45 | Discharge Summary ---
Discharge Provider Provider Patient information: Note initiated : 01/28/21 at 8:44 am Service Date, if different from initiated Date: [] Patient: Marbin Cummings 75 y/o M admitted on 01/27/21 for Stroke Sx. Chief Complaint: [] Date of admission: 01/27/21 16:29 Discharge date: 01/28/21 Primary care physician: Uriah Pedraza PA-C Consults: 01/27/21 Consult to Physician [CONS] Stat Comment: Consulting Provider: Deangelo King Reason For Exam: Physician to Consult 01/27/21 13:36 Consult to Physician [CONS] Stat Comment: Consulting Provider: Telestroke,Provider Reason For Exam: Physician to Consult Discharge Meds Discharge Medications Home Medications blood-glucose meter #1 each 12/24/16 [Rx Confirmed 01/27/21 Last Taken Unknown] lancets #100 each 12/24/16 [Rx Confirmed 01/27/21 Last Taken Unknown] potassium chloride 10 mEq tablet,extended release(part/cryst) 10 meq PO BID #180 tab 04/20/19 [Rx Confirmed 01/27/21 Last Taken 01/26/21 08:00] ketoconazole 2 % topical cream 1 applic TOPICAL BID #60 g 08/06/19 [Rx Confirmed 01/27/21 Last Taken Unknown] furosemide 40 mg tablet 40 mg PO QDAY 90 Days #90 tab 08/18/20 [Rx Confirmed 01/27/21 Last Taken 01/26/21 08:00] insulin glargine 100 unit/mL (3 mL) subcutaneous pen See Rx Instructions .ROUTE .COMPLEX ml 09/22/20 [History Confirmed 01/27/21 Last Taken Unknown] blood sugar diagnostic #100 each 10/13/20 [Rx Confirmed 01/27/21 Last Taken Unknown] sildenafil 50 mg tablet 50 mg PO ONCE #30 tab 10/16/20 [Rx Confirmed 01/27/21 Last Taken Unknown] diltiazem HCl 240 mg capsule,extended release 24 hr 240 mg PO QDAY 90 Days #90 cap 11/04/20 [Rx Confirmed 01/27/21 Last Taken 01/26/21 08:00] losartan 50 mg tablet 50 mg PO BID 90 Days #180 tab 11/04/20 [Rx Confirmed 01/27/21 Last Taken 01/26/21 08:00] metoprolol succinate 50 mg tablet,extended release 24 hr 50 mg PO BID 90 Days #180 tab 11/04/20 [Rx Confirmed 01/27/21 Last Taken 01/26/21 08:00] terbinafine HCl 250 mg tablet 250 mg PO QDAY tab 11/06/20 [History Confirmed 01/27/21 Last Taken Unknown] insulin aspart (niacinamide)(U-100) 100 unit/mL(3 mL) subcutaneous pen 5 unit SUB-Q QDAY #15 ml 11/19/20 [Rx Confirmed 01/27/21 Last Taken 01/27/21 10:00] metformin 500 mg tablet 1,000 mg PO BID 90 Days #360 tab 11/26/20 [Rx Confirmed 01/27/21 Last Taken 01/26/21 12:00] atorvastatin 10 mg tablet 10 mg PO QDAY 90 Days #90 tab 12/18/20 [Rx Confirmed 01/27/21 Last Taken 01/26/21 08:00] magnesium oxide 400 mg (241.3 mg magnesium) tablet 400 mg PO BID 90 Days #180 tab 01/05/21 [Rx Confirmed 01/27/21 Last Taken 01/26/21 08:00] glucagon 3 mg/actuation nasal spray 3 mg INTRANASAL ONCE #2 ea 01/07/21 [Rx Confirmed 01/27/21 Last Taken Unknown] digoxin 125 mcg (0.125 mg) tablet 125 mcg PO QDAY 90 Days #90 tab 01/08/21 [Rx Confirmed 01/27/21 Last Taken 01/26/21 08:00] prednisone 60 mg PO [facility] #6 tab 01/28/21 [Rx Last Taken Unknown] warfarin 5 mg PO QDAY #20 tab 01/28/21 [Rx Last Taken Unknown] COURSE Hospital Course Hospital course: Patient presented to the ED with left facial numbness and weakness. Symptoms started yesterday at 1930 and prior to that he was in his normal state of health. 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 Symptoms have continued through the night. States he developed left facial numbness when he was in the living room with his last night and then shortly thereafter started having droopiness. Had some blurry vision as well. Denies any swallowing difficulty. Denies any numbness tingling or weakness in his arms or legs. Patient states that he feels his symptoms have improved overall but still has noticeable left facial droop. Patient says last night he was not able to raise his eyebrow or close his eye but is able to do both of those today. CTA head neck was unremarkable for acute pathology or severe stenosis. Case discussed with stroke neurologist. Patient does have a history of A. fib and was subtherapeutic on INR. 01/28 MRI brain negative. 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 Will do trial of steroids. A: *Stroke-like symptoms (left facial numbness/drooping) suspected german's palsy: no infarct on MRI -h/o Left [place] Palsy but pt able to raise eyebrow/wrinkle forehead/close eye, although states was unable to perform those tasks last night. 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 fib diabetes obesity hypertension Time Spent with Patient Time attestation: Total time spent providing and/or coordinating discharge services: Time spent: Greater than 30 minutes EXAM Constitutional Vitals: Temp Pulse Resp BP Pulse Ox 97.0 F 71 32 H 118/106 100 01/28/21 07:22 01/28/21 00:39 01/28/21 07:22 01/28/21 07:22 01/28/21 07:22 Discharge Data Data Completed and Pending Labs on day of discharge: Labs from last 24 hours 01/28/21 01/28/21 01/27/21 05:43 05:42 15:20 WBC RBC Hgb Hct MCV MCH MCHC RDW Plt Count MPV Neut % (Auto) Lymph % (Auto) [place] % (Auto) Eos % (Auto) Baso % (Auto) Lymph # (Auto) [place] # (Auto) Eos # (Auto) Baso # (Auto) Absolute Neutrophils POC PT PT 18.3 H POC INR INR 1.4 H APTT Sodium Potassium Chloride Carbon Dioxide Anion Gap BUN Creatinine POC Creatinine GFR Calculation Glucose Calcium Total Bilirubin AST ALT Alkaline Phosphatase Troponin T Total Protein Albumin Globulin Albumin/Globulin Ratio Triglycerides Cholesterol LDL Cholesterol, Calc Non-HDL Cholesterol HDL Cholesterol Urine Color Yellow Urine Appearance Clear Urine pH 6.0 Ur Specific [place] 1.047 Urine Protein Negative Urine Glucose (UA) >=500 A Urine Ketones Negative Urine Occult Blood Negative Urine Nitrate Negative Urine Bilirubin Negative Urine Urobilinogen Negative Ur Leukocyte Esterase Negative Urine RBC 0 Urine WBC 0 Ur Squamous Epith Cells 0 Urine Bacteria None Ur Culture Indicated? No Digoxin 0.5 01/27/21 01/27/21 01/27/21 12:48 12:47 12:47 WBC 9.8 RBC 4.61 L Hgb 14.9 Hct 43.2 MCV 93.7 MCH 32.3 MCHC 34.5 RDW 13.5 Plt Count 241 MPV 10.6 H Neut % (Auto) 63.9 Lymph % (Auto) 27.1 [place] % (Auto) 8.0 Eos % (Auto) 0.6 Baso % (Auto) 0.4 Lymph # (Auto) 2.66 [place] # (Auto) 0.78 Eos # (Auto) 0.06 Baso # (Auto) 0.04 Absolute Neutrophils 6.27 POC PT PT POC INR INR APTT Sodium Potassium Chloride Carbon Dioxide Anion Gap BUN Creatinine POC Creatinine GFR Calculation Glucose Calcium Total Bilirubin AST ALT Alkaline Phosphatase Troponin T Total Protein Albumin Globulin Albumin/Globulin Ratio Triglycerides 187 H Cholesterol 151 LDL Cholesterol, Calc 80 Non-HDL Cholesterol 117 HDL Cholesterol 34 L Urine Color Urine Appearance Urine pH Ur Specific [place] Urine Protein Urine Glucose (UA) Urine Ketones Urine Occult Blood Urine Nitrate Urine Bilirubin Urine Urobilinogen Ur Leukocyte Esterase Urine RBC Urine WBC Ur Squamous Epith Cells Urine Bacteria Ur Culture Indicated? Digoxin 0.4 01/27/21 01/27/21 01/27/21 12:47 12:47 12:41 WBC RBC Hgb Hct MCV MCH MCHC RDW Plt Count MPV Neut % (Auto) Lymph % (Auto) [place] % (Auto) Eos % (Auto) Baso % (Auto) Lymph # (Auto) [place] # (Auto) Eos # (Auto) Baso # (Auto) Absolute Neutrophils POC PT 16.3 H PT 17.8 H POC INR 1.4 H INR 1.4 H APTT 37.3 H Sodium 136 Potassium 4.0 Chloride 101 Carbon Dioxide 21 L Anion Gap 14.0 BUN 14 Creatinine 0.9 POC Creatinine 0.9 GFR Calculation 82 Glucose 314 H Calcium 9.1 Total Bilirubin 0.9 AST 17 ALT 15 Alkaline Phosphatase 87 Troponin T < 0.01 Total Protein 7.1 Albumin 4.0 Globulin 3.1 Albumin/Globulin Ratio 1.3 Triglycerides Cholesterol LDL Cholesterol, Calc Non-HDL Cholesterol HDL Cholesterol Urine Color Urine Appearance Urine pH Ur Specific [place] Urine Protein Urine Glucose (UA) Urine Ketones Urine Occult Blood Urine Nitrate Urine Bilirubin Urine Urobilinogen Ur Leukocyte Esterase Urine RBC Urine WBC Ur Squamous Epith Cells Urine Bacteria Ur Culture Indicated? Digoxin Discharge Plan Patient/Caregiver Discharge Instructions Activity: increase activity as tolerated Diet: Consistent Carbohydrate Activity Restrictions/Additional Instructions: Change warfarin to 5 mg every day instead of 2.5 several days a week. Patient to follow-up closely with PCP for warfarin/INR adjustment. Prescriptions: New warfarin 5 mg tablet 5 mg PO QDAY Qty: 20 RF: 0 prednisone 20 mg Tablet 60 mg PO QAC Qty: 6 RF: 0 Continued (DME) lancets [Comfort Lancets] misc See Dose Instructions .ROUTE .MEDSUPPLY Qty: 100 RF: 0 (DME) blood-glucose meter kit See Dose Instructions .ROUTE .MEDSUPPLY Qty: 1 RF: 0 ketoconazole 2 % cream 1 applic TOPICAL BID Qty: 60 RF: 0 furosemide 40 mg tablet 40 mg PO QDAY 90 Days Qty: 90 RF: 1 (DME) True Metrix Glucose Test Strip Strip See Dose Instructions .ROUTE .MEDSUPPLY Qty: 100 RF: 2 sildenafil [Viagra] 50 mg tablet 50 mg PO ONCE Qty: 30 RF: 0 losartan 50 mg tablet 50 mg PO BID 90 Days Qty: 180 RF: 1 metoprolol succinate 50 mg tablet extended release 24 hr 50 mg PO BID 90 Days Qty: 180 RF: 1 diltiazem HCl 240 mg capsule,extended release 24hr 240 mg PO QDAY 90 Days Qty: 90 RF: 1 insulin aspart (niacinamide) 100 unit/mL (3 mL) insulin pen 5 unit SUB-Q QDAY Qty: 15 RF: 0 metformin 500 mg tablet 1,000 mg PO BID 90 Days Qty: 360 RF: 1 atorvastatin 10 mg tablet 10 mg tablet 10 mg PO QDAY 90 Days Qty: 90 RF: 1 magnesium oxide 400 mg (241.3 mg magnesium) tablet 400 mg PO BID 90 Days Qty: 180 RF: 1 digoxin 125 mcg (0.125 mg) tablet 125 mcg PO QDAY 90 Days Qty: 90 RF: 1 potassium chloride [Klor-Con M10] 10 mEq tablet,ER particles/crystals 10 meq PO BID Qty: 180 RF: 1 terbinafine HCl 250 mg tablet 250 mg PO QDAY RF: 0 Basaglar KwikPen U-100 Insulin 100 unit/mL (3 mL) insulin pen See Rx Instructions .ROUTE .COMPLEX RF: 0 Baqsimi 3 mg/actuation spray,non-aerosol 3 mg intranasal ONCE Qty: 2 RF: 0 Discontinued warfarin 5 mg tablet See Rx Instructions mg .ROUTE .COMPLEX Qty: 90 RF: 0 Follow Up Plan Follow up with: Uriah Pedraza PA-C [Primary Care Provider] - Patient Disposition: Home, Self-Care Prognosis: Fair Discharge Orders: Discharge Order (Routine); Ordered 01/28/21 Ordered By: Deangelo King [facility] Deep Vein Thrombosis/Pulmonary Embolism Present on Admission: No
[2021-01-28] MEDS ORDERED: ENOXAPARIN 80 MG/0.8 ML SYRINGE SQ SCH (09:00)
[2021-01-28] MEDS ORDERED: DILTIAZEM 240 MG CAP.XL.24H PO SCH (09:00)
[2021-01-28] MEDS ORDERED: DIGOXIN 125 MCG TABLET PO SCH (09:00)
[2021-01-28] MEDS ORDERED: FUROSEMIDE 40 MG TABLET PO SCH (09:00)
[2021-01-28] MEDS: DOCUSATE SODIUM 100 MG CAPSULE PO SCH (10:07)
[2021-01-28] MEDS: INSULIN GLARGINE, HUMAN 1 UNIT/0.01 ML SQ SCH (10:08)
--- NOTE | 2021-01-28 18:07 | EKG ---
[facility] Test Date: 2021-01-27 Pat Name: Marbin Cummings Department: ED Room: Gender: Male [employer]: : 1945 Requested By: Jas Le Order Number: [id number] Reading MD: Marbin Leal Measurements Intervals [place] Rate: 66 P: TN: QRS: 1 QRSD: 88 T: 195 QT: 392 QTc: 411 Interpretive Statements ATRIAL FIBRILLATION, V-RATE 47- 85 BORDERLINE INFERIOR Q WAVES NONSPECIFIC T ABNORMALITIES, LATERAL LEADS Electronically Signed On 01-28-2021 18:07:03 PDT by Marbin Leal /[id number]
[2021-01-29] MEDS ORDERED: predniSONE 20 MG TABLET PO SCH (08:00)
== END 2021-01-28 11:03 | disposition home or self-care (01) ==
LOC: ED 12:30 → INTOOBSV 16:29 → ICU 16:29
PROVIDERS: ADMIT Internal Medicine; ATTEND Internal Medicine